=== PATIENT | male | born 1950 | race Caucasian/White ===

== ENCOUNTER 2022-01-14 06:30 | Day surgery (SDC) | payer OTHER ==
--- NOTE | 2022-01-13 15:04 | RAD REPORT ---
EXAM DESCRIPTION: RAD - Chest Pa And Lat (2 Views) - 01/13/2022 2:55 pm CLINICAL HISTORY: Pre op pending heart cath Chest pain. COMPARISON: No comparisons FINDINGS: Mild interstitial pulmonary edema. The heart is moderately enlarged in size. No displaced fractures. Trace right pleural effusion. IMPRESSION: Mild CHF.
[2022-01-13 15:06] LABS: Absolute Lymphocytes (CBC) 1.5 K/uL (0.7-4.9); Hematocrit 50.2 % (39.6-49.0); Lymphocytes % 28.7 % (15.3-44.8); MCV 95.2 fL (80-100); MPV 8.9 fL (7.6-11.3); RBC Red Blood Cell Count 5.28 M/uL (4.33-5.43)
[2022-01-13 15:11] LABS: Protime INR 0.97
[2022-01-13 15:17] LABS: SARS-CoV-2 Antigen Rapid Res Negative (Negative)
[2022-01-13 15:20] LABS: Potassium 4.1 mmol/L (3.5-5.1)
[2022-01-14] MEDS ORDERED: HEPA 1000U/500MLS 2,000 UNIT/1,000 ML BAG IV ONE (06:49)
[2022-01-14] MEDS ORDERED: FENTANYL CITR 100 MCG/2 ML ONE (06:50)
[2022-01-14] MEDS ORDERED: MIDAZOLAM HCL 2 MG/2 ML INJ ONE (06:50)
[2022-01-14] MEDS ORDERED: NA CHLORIDE 0.9% 0 ML IV ONE (06:51)
[2022-01-14] MEDS ORDERED: NITROGLYCERIN/D5W 25 MG/250 ML BTL IV ONE (06:51)
[2022-01-14] MEDS ORDERED: NITROGLYCERIN 100 MCG/ML SYR (for cath lab use only) IV ONE (06:51)
[2022-01-14] MEDS ORDERED: LIDOCAINE 1% 20 ML MDV ONE (06:51)
[2022-01-14] MEDS ORDERED: ATROPINE SULF 1 MG/10 ML SYR IV ONE (06:51)
[2022-01-14] MEDS ORDERED: ACETYLCYST 20% 4 ML VIAL IH ONE (06:56)
[2022-01-14] MEDS ORDERED: NA CHLORIDE 0.9% 500 ML ONE (07:02)
[2022-01-14 09:29] VITALS: BP 151/89; O2SAT 98
--- NOTE | 2022-01-14 19:42 | OP ---
Surgeon: Andriy Perkins MD [id number] Software Engineer: Ms. Carmen Salazar. Procedures: Left heart catheterization, selective coronary arteriogram, common femoral artery angiog miriam. Indication: Chronic atrial fibrillation, shortness of breath, and abnormal stress test. Procedure In Detail: Mr. Christensen is 71. He is on beta-blockers and aspirin as far as atrial fi brillation is concerned. Had a positive stress test, brought to the offset label rewinder today as an outpatient, prepped and draped in routine sterile fashion. Given Versed and fentanyl for sedation. A 6-Divehi sheath introduced in the right common femoral artery successfully using 10 cc of Xylocaine and the Se ldinger technique. Amparo catheter left and right, were used to cannulate the left main and right m ain respectively. He was right dominant. His left main was normal. LAD, circumflex, and RCA were a ll normal without any significant coronary artery disease. The patient tolerated the procedure well. There were no complication. Blood loss was 5 cc. Total conscious sedation was 30 minutes. Common femoral artery angiogram was normal. Angio-Seal was used to close the case. Final Diagnoses: Atrial fibrillation, shortness of breath, normal heart catheterization. Plan: To continue medical therapy. Consider the use of anticoagulants. The patient will go home in 2 hours after bedrest and will see me in the office in 2 weeks. PADMINI/SAVANA Voice ID: [id number] Report ID: [id number]
== END 2022-01-14 09:36 | disposition home or self-care (01) ==
LOC: CCL 06:30
DX: R94.39 Abnormal result of other cardiovascular function study (principal); R07.9 Chest pain, unspecified; I48.21 Permanent atrial fibrillation; R06.02 Shortness of breath; I10 Essential (primary) hypertension; I65.23 Occlusion and stenosis of bilateral carotid arteries; K21.9 Gastro-esophageal reflux disease without esophagitis; Z20.822 Contact with and (suspected) exposure to COVID-19; Z82.49 Family history of ischemic heart disease and other diseases of the circulatory system
CPT/HCPCS: 85025; 80048; 36415; 85610; 85730; 71046; 93454; 87811; C1893; C1760; Q9967; G0269; J2250; J3010; J7040; J1644; J0583

== ENCOUNTER 2023-06-01 11:31 | Day surgery (SDC) | payer OTHER, MEDICARE ==
[2023-06-01 12:33] VITALS: O2SAT 95
--- NOTE | 2023-06-01 13:05 | OP ---
Date of Procedure: 06/01/2023 Surgeon: KAVON MARTIN Procedure Performed: Transesophageal echocardiogram. Indication: Atrial fibrillation, status post Watchman procedure. Description Of Procedure: After risks, benefits, alternatives were explained, the patient agreed to procedure and signed informed consent. The patient was brought into the cystoscopy room. After prop er time-out, anesthesia was applied using propofol, then ZACKERY probe was inserted without difficulty, W atchman was seated well. No leak with thrombus. ZACKERY probe was removed. The patient was sent to [facility] in stable condition. Conclusion: Successful ZACKERY with Watchman seated well. No thrombus or leak. Plan: Discontinue Eliquis and discontinue Xarelto. SR/MODL Voice ID: [id number] Report ID: [id number]
[2023-06-01 13:11] VITALS: BP 139/97
--- NOTE | 2023-06-02 08:13 | TEE ---
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 TRANSESOPHAGEAL ECHOCARDIOGRAM WAS INSERTED, NO DIFFICULTY 2. WATCHMAN IS SEATED WELL, NO LEAK, NO THROMBUS 3. NORMAL LEFT VENTRICULAR EJECTION FRACTION 55-60% 4. MILD AORTIC INSUFFICIENCY 5. TRACE MITRAL REGURGITATION TECHNOLOGIST: DIANNA VERDE
== END 2023-06-01 13:00 | disposition home or self-care (01) ==
LOC: EKG 11:31
PROVIDERS: ATTEND Internal Medicine
DX: I48.11 Longstanding persistent atrial fibrillation (principal); Z98.890 Other specified postprocedural states
CPT/HCPCS: 93312